=== PATIENT | female | born 1995 | race Caucasian/White ===

== ENCOUNTER 2016-08-25 20:17 | Emergency (ER) | payer BC ==
[2016-08-25 20:31] LABS: URINE APPEARANCE CLEAR; URINE BILIRUBIN NEGATIVE (NEGATIVE); URINE BLOOD NEGATIVE (NEGATIVE); URINE COLOR YELLOW; URINE GLUCOSE (UA) NEGATIVE (NEGATIVE); URINE KETONE NEGATIVE (NEGATIVE); URINE LEUKOCYTE ESTERASE NEGATIVE (NEGATIVE); URINE NITRITE NEGATIVE (NEGATIVE); URINE PROTEIN NEGATIVE (NEGATIVE); URINE UROBILINOGEN 0.2 E.U./dL (0.20 - 1.00)
[2016-08-25 20:34] LABS: HCG,QUALITATIVE URINE NEGATIVE (NEGATIVE)
--- NOTE | 2016-08-25 20:48 | Emergency Department Record ---
History of Present Illness - General Chief Complaint: Abdominal Pain Stated Complaint: ABD PAIN Time Seen by Provider: 08/25/16 20:47 Source: Patient Mode of Arrival: Ambulatory Limitations: No limitations - History of Present Illness Initial Comments: The patient is here due to a sharp stabbing RUQ AP that has been present for 2 weeks. It has been intermittent and worsening with eating and there has been mild nausea and vomiting at times. The patient did have an US performed here at [facility] 2 days ago but is not sure of the results. She states the pain has become much worse over the last 2 hours. MD Complaint: Abdominal pain Onset/Timin -: Week(s) Location: RUQ Severity: Severe Quality: Burning, Sharp Consistency: Constant - Related Data LMP (females 10-50): 3 weeks ago Patient : No Home Medications Medication Instructions Recorded Confirmed Last Taken Escitalopram Oxalate [Lexapro] 20 mg PO DAILY 08/25/16 08/25/16 Unknown Lurasidone HCl [Latuda] 60 mg PO DAILY 08/25/16 08/25/16 Unknown Trazodone HCl [Desyrel] 50 mg PO QHS 08/25/16 08/25/16 Unknown Previous Rx's Medication Instructions Recorded Sucralfate [Carafate] 1 gm PO QID #28 tablet 08/25/16 Allergies Allergy/AdvReac Type Severity Reaction Status Date / Time bupropion HCl Allergy ANAPHYLAXIS Verified 08/25/16 20:35 [From Wellbutrin] aripiprazole [From Abilify] AdvReac Change in Verified 08/25/16 20:35 Behavior metronidazole [From Flagyl] AdvReac Jaw Locking Verified 08/25/16 20:35 tramadol AdvReac Fainted Verified 08/25/16 20:35 Travel Screening - Travel/Exposure Within Last 30 Days Have you traveled within the last 30 days?: No Review of Systems Constitutional: Denies: Chills, Fever ENT: Denies: Congestion Respiratory: Denies: Cough, Dyspnea Cardiovascular: Denies: Arrhythmia, Chest pain Past Medical History - SOCIAL HISTORY Smoking Status: Never smoker Alcohol Use: Rare Drug Use: None - RESPIRATORY Hx Respiratory Disorders: No - CARDIOVASCULAR Hx Cardio Disorders: No - NEURO Hx Neuro Disorders: No - GI Hx GI Disorders: No - Hx Genitourinary Disorders: No - ENDOCRINE Hx Endocrine Disorders: No - MUSCULOSKELETAL Hx Musculoskeletal Disorders: No - PSYCH Hx Psych Problems: Yes Hx Anxiety: Yes Hx Depression: Yes - HEMATOLOGY/ONCOLOGY Hx Hematology/Oncology Disorders: No Family Medical History Any Significant Family History?: Yes Hx Cancer: Grandparents Hx Depression: Grandparents Hx Heart Disease: Grandparents Hx HTN: Grandparents Physical Exam - General General Appearance: Alert, Oriented x3, Cooperative, No acute distress - Head Head exam: Atraumatic, Normocephalic, Normal inspection - Eye Eye exam: Normal appearance, PERRL - ENT Throat exam: Normal inspection. negative: Tonsillar erythema, Tonsillar exudate - Neck Neck exam: Normal inspection, Full ROM. negative: Tenderness - Respiratory Respiratory exam: Normal lung sounds bilaterally. negative: Respiratory distress - Cardiovascular Cardiovascular Exam: Regular rate, Normal rhythm, Normal heart sounds - GI/Abdominal GI/Abdominal exam: Soft, Tenderness (There is mild to moderate RUQ tenderness.) . negative: Guarding, Rebound, Rigid - Extremities Extremities exam: Normal inspection, Full ROM, Normal capillary refill. negative: Tenderness - Back Back exam: Reports: Normal inspection - Neurological Neurological exam: Alert, Normal gait. negative: Abnormal gait, Motor sensory deficit Course Vital Signs 08/25/16 20:23 Temperature 97.7 F Pulse Rate [ 97 H Pulse Ox Probe] Respiratory 21 Rate Blood Pressure 120/73 [Right Arm] Pulse Ox 100 - Reevaluation(s) Reevaluation #1: The patient is doing much better at this time. Her pain has resolved with the small dose of Dilaudid. She denies any discomfort or tenderness at this time. 08/25/16 21:11 Reevaluation #2: The patient is doing much better at this time. Her pain is now down to her chronic pain level over the last 2 weeks. She is scheduled for a HIDA scan by her PCP also. 08/25/16 21:36 Reevaluation #3: The patient is doing much better at this time. Her abdominal pain now has resolved and she denies any significant discomfort. I did explain the need to have the HIDA performed which her PCP is ordering. We also will place a consult to Dr. Chase for this . 08/25/16 22:09 Medical Decision Making - Data Complexity MDM Data: Labs Ordered and/or Reviewed, X-Ray Ordered and/or Reviewed - Lab Data Result diagrams: 08/25/16 20:20 08/25/16 20:20 Lab Results 08/25/16 Range/Units 20:34 Urine Color Yellow Urine Appearance Clear Urine pH 7.0 (5.0-8.0) Ur Specific Josephine 1.010 (1.002-1.030) Urine Protein Negative (NEGATIVE) Urine Glucose (UA) Negative (NEGATIVE) Urine Ketones Negative (NEGATIVE) Urine Blood Negative (NEGATIVE) Urine Nitrite Negative (NEGATIVE) Urine Bilirubin Negative (NEGATIVE) Urine Urobilinogen 0.2 (0.20 - 1.00) E.U./dL Ur Leukocyte Esterase Negative (NEGATIVE) Urine HCG, Qual Negative (NEGATIVE) - Radiology Data Radiology results: Report reviewed (US 08/23. Normal per chemistry technical officer.) Disposition Disposition: Discharge Clinical Impression: Abdominal pain Qualifiers: Abdominal location: right upper quadrant Qualified Code(s): R10.11 - Right upper quadrant pain Disposition: Home, Self-Care Condition: (1) Good Instructions: Abdominal Pain (ED) Additional Instructions: Please continue your regular medicines. Please take the Carafate as directed. Please see Nena in Dr. Valdes office to get the Hida ordered. Return to the ER for any increased pain, fever, or vomiting. Prescriptions: Sucralfate [Carafate] 1 gm PO QID #28 tablet Referrals: [facility] Special[facility] [Provider Group] Forms: Patient Portal Access Time of Disposition: 22:12
[2016-08-25] MEDS ORDERED: 0.9 % SODIUM CHLORIDE 1,000 ML BAG IV ONE (20:50)
[2016-08-25] MEDS ORDERED: ONDANSETRON HCL IV 4 MG/2 ML VIAL IV ONE (20:50)
[2016-08-25] MEDS ORDERED: HYDROMORPHONE HCL 1 MG/ML CPJ IVP ONE (20:56)
[2016-08-25 21:11] LABS: BASO % 0.4 % (0-6); EOS % 2.4 % (0-6); GRAN % 48.4 % (47-80); HEMATOCRIT 37.1 % (35.0-47.0); HEMOGLOBIN 12.2 gm/dl (11.6-16.0); LYMPH % 40.3 % (16-45); MEAN CELL VOLUME 85.5 fl (81-97); MEAN CORPUSCULAR HEMOGLOBIN 28.1 pg (27-33); MEAN CORPUSCULAR HGB CONC 32.9 g/dl (32-36); MEAN PLATELET VOLUME 10.2 fl (7.4-10.4); MONO % 8.5 % (0-9); PLATELET COUNT 234 K/uL (130-400); RED BLOOD COUNT 4.34 M/uL (3.80-5.40); RED CELL DISTRIBUTION WIDTH 13.9 % (11.5-14.5); WHITE BLOOD COUNT W/O DIFF 7.7 K/uL (4.2-12.2)
[2016-08-25 21:22] LABS: ALBUMIN 4.3 gm/dL (3.5-5.0); ALKALINE PHOSPHATASE 71 U/L (38-126); ALT/SGPT 30 U/L (9-52); ANION GAP 13.9 (7-16); AST/SGOT 22 U/L (14-36); BILIRUBIN,TOTAL 0.19 mg/dL (0.2-1.3); BLOOD UREA NITROGEN 13 mg/dL (7-17); CARBON DIOXIDE 25.1 mmol/L (22-30); CREATININE 0.8 mg/dL (0.52-1.04); EST GLOMERULAR FILTRATION RATE > 60 ml/min; GLUCOSE,RANDOM 112 mg/dL (70-110); LIPASE 143 U/L (23-300); TOTAL PROTEIN 7.3 gm/dL (6.3-8.2)
[2016-08-25] MEDS ORDERED: SUCRALFATE 1 G/10 ML UD PO ONE (21:33)
[2016-08-25] MEDS ORDERED: DIPHENHYDRAMINE HCL IV 50 MG/ML VIAL IVP ONE (21:55)
[2016-08-25] MEDS ORDERED: KETOROLAC 30 MG/ML VIAL IVP ONE (21:56)
== END 2016-08-25 22:35 | disposition home or self-care (01) ==
LOC: ER 20:17
DX: R10.11 Right upper quadrant pain (principal); R11.2 Nausea with vomiting, unspecified
CPT/HCPCS: 99284 ×2; 96374; 96375; 83690; 85025; 80076; 80048; 81003; 81025; J1885; J2405; J1170; J1200; J7030

== ENCOUNTER 2016-12-17 10:19 | Emergency (ER) | payer BC ==
--- NOTE | 2016-12-17 10:58 | Emergency Department Record ---
History of Present Illness - General Chief complaint: Head Injury Stated complaint: HEAD INJURY Time Seen by Provider: 12/17/16 10:43 Source: Patient Mode of Arrival: Ambulatory Limitations: No limitations - History of Present Illness Initial comments: 21 yo female presents to ED with a CC of injury to the head that occurred 48 hours ago resulting from a fall at home. Patient denies LOC, but reports nausea , dizziness, and difficulty concentrating since the injury occurred. 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 As a result, the patient reports her PCP instructed her to come to the ED for imaging of the brain. MD Complaint: Head injury Onset/Timin -: Days(s) Mechanism of Injury: Other Location: Parietal, Temporal Loss of Consciousness: No Place: Home Severity scale (1-10): 4 Quality: Burning Consistency: Intermittent Associated Symptoms: Nausea, Vertigo, Other - Related Data Home Medications Medication Instructions Recorded Confirmed Last Taken Escitalopram Oxalate [Lexapro] 20 mg PO DAILY 08/25/16 12/17/16 12/17/16 Lurasidone HCl [Latuda] 60 mg PO DAILY 08/25/16 12/17/16 12/16/16 Trazodone HCl [Desyrel] 50 mg PO QHS 08/25/16 12/17/16 12/16/16 Loratadine [Claritin] 10 mg PO DAILY 12/17/16 12/17/16 12/17/16 Milnacipran HCl [Savella] 25 mg PO BID 12/17/16 12/17/16 12/17/16 Allergies/Adverse reactions: Allergies Allergy/AdvReac Type Severity Reaction Status Date / Time bupropion HCl Allergy ANAPHYLAXIS Verified 08/25/16 20:35 [From Wellbutrin] aripiprazole [From Abilify] AdvReac Change in Verified 08/25/16 20:35 Behavior metronidazole [From Flagyl] AdvReac Jaw Locking Verified 08/25/16 20:35 tramadol AdvReac Fainted Verified 08/25/16 20:35 Travel Screening - Travel/Exposure Within Last 30 Days Have you traveled within the last 30 days?: No - Travel/Exposure Within Last Year Have you traveled outside the [place] in the last year?: No - Additonal Travel Details Have you been exposed to anyone with a communicable illness?: No - Travel Symptoms Symptom Screening: None Review of Systems Constitutional: Denies: Chills, Fever, Malaise, Night sweats Eyes: Denies: Eye discharge, Eye pain ENT: Denies: Congestion, Ear pain, Epistaxis Respiratory: Denies: Cough, Dyspnea Cardiovascular: Denies: Chest pain, Dyspnea on exertion Endocrine: Denies: Fatigue, Heat or cold intolerance Gastrointestinal: Reports: Nausea. Denies: Abdominal pain, Vomiting Genitourinary: Denies: Abnormal menses, Incontinence, Retention Musculoskeletal: Denies: Arthralgia, Back pain, Gout Skin: Denies: Bruising, Change in color Neurological: Reports: Headache. Denies: Abnormal gait, Confusion, Seizure Psychiatric: Denies: Anxiety Hematological/Lymphatic: Denies: Anemia, Blood Clots Past Medical History - SOCIAL HISTORY Smoking Status: Never smoker Alcohol Use: Rare Drug Use: None - RESPIRATORY Hx Respiratory Disorders: No - CARDIOVASCULAR Hx Cardio Disorders: No - NEURO Hx Neuro Disorders: Yes Comment:: Arachnoid cyst - GI Hx GI Disorders: Yes Hx Irritable Bowel: Yes - Hx Genitourinary Disorders: No - ENDOCRINE Hx Endocrine Disorders: No - MUSCULOSKELETAL Hx Musculoskeletal Disorders: Yes Hx Fibromyalgia: Yes - PSYCH Hx Psych Problems: Yes Hx Anxiety: Yes Hx Depression: Yes - HEMATOLOGY/ONCOLOGY Hx Hematology/Oncology Disorders: No Family Medical History Any Significant Family History?: No Hx Cancer: Grandparents Hx Depression: Grandparents Hx Heart Disease: Grandparents Hx HTN: Grandparents Physical Exam - General General Appearance: Alert, Oriented x3, Cooperative, No acute distress, Other ( smiling, well appearing on examination) Limitations: No limitations - Head Head exam: Atraumatic, Normocephalic, Normal inspection Head exam detail: negative: Abrasion, Contusion, Suresh's sign, General tenderness, Hematoma, Laceration - Eye Eye exam: Normal appearance. negative: Conjunctival injection, Periorbital swelling, Periorbital tenderness, Scleral icterus - ENT Ear exam: negative: Auricular hematoma, Auricular trauma Nasal Exam: negative: Active bleeding, Discharge, Dried blood, Foreign body Mouth exam: negative: Drooling, Laceration, Muffled voice, Tongue elevation - Neck Neck exam: Normal inspection. negative: Meningismus, Tenderness - Respiratory Respiratory exam: Normal lung sounds bilaterally. negative: Rales, Respiratory distress, Rhonchi, Stridor - Cardiovascular Cardiovascular Exam: Regular rate, Normal rhythm, Normal heart sounds - GI/Abdominal GI/Abdominal exam: Soft. negative: Rebound, Rigid, Tenderness - Rectal Rectal exam: Deferred - exam: Deferred - Extremities Extremities exam: Normal inspection. negative: Calf tenderness, Pedal edema, Tenderness - Back Back exam: Denies: CVA tenderness (R), CVA tenderness (L) - Neurological Neurological exam: Alert, Normal gait, Oriented X3 - Psychiatric Psychiatric exam: Normal affect, Normal mood - Skin Skin exam: Normal color. negative: Abrasion Type of lesion: negative: abrasion Course Vital Signs 12/17/16 10:30 Temperature 97.7 F Pulse Rate [ 83 Pulse Ox Probe] Respiratory 18 Rate Blood Pressure 116/72 [Left Arm] Pulse Ox 98 - Reevaluation(s) Reevaluation #1: 12/17/16 11:51 CT Brain: Arachnoid cyst, nothing acute. Patient was updated on her imaging study results, patient appears stable for discharge at this time with follow-up with her PCP in 3-5 days as directed. Disposition Disposition: Discharge Clinical Impression: Head injury Qualifiers: Encounter type: initial encounter Qualified Code(s): S09.90XA - Unspecified injury of head, initial encounter Disposition: Home, Self-Care Condition: (2) Stable Instructions: Minor Head Injury (ED) Additional Instructions: Return to ED if your symptoms worsen or if you have any concerns. Follow-up with your family doctor in 3-5 days as directed. Forms: Patient Portal Access Time of Disposition: 11:53
--- NOTE | 2016-12-20 15:03 | CT SCAN REPORT ---
EXAM: CT OF THE BRAIN WITHOUT CONTRAST HISTORY: CONCUSSION. CYST ON BRAIN. TECHNIQUE: Sequential axial images were obtained from the foramen magnum to the vertex without contrast administration. FINDINGS: The brain volume is normal. There is an arachnoid cyst in the left anterior middle cranial fossa. No large territorial hemorrhage, infarct, mass effect, or midline shift. No extraaxial fluid collection. The orbits, paranasal sinuses, and mastoid air cells are normal. IMPRESSION: 1. NO ACUTE INTRACRANIAL ABNORMALITY IS APPRECIATED. 2. BENIGN APPEARING ARACHNOID CYSTS IN THE ANTERIOR LEFT MIDDLE CRANIAL FOSSA. JOB NUMBER: [id number] MTDD
== END 2016-12-17 12:02 | disposition home or self-care (01) ==
LOC: ER 10:19
DX: S09.90XA Unspecified injury of head, initial encounter (principal); R42 Dizziness and giddiness; R11.0 Nausea; W19.XXXA Unspecified fall, initial encounter; Y92.009 Unspecified place in unspecified non-institutional (private) residence as the place of occurrence of the external cause; G93.0 Cerebral cysts
CPT/HCPCS: 70450; 99283

== ENCOUNTER 2018-01-23 13:27 | Emergency (ER) | payer BC ==
--- NOTE | 2018-01-23 14:01 | Emergency Department Record ---
History of Present Illness - General Chief Complaint: Abdominal Pain Stated Complaint: ABD CRAMPS Time Seen by Provider: 01/23/18 13:35 Source: Patient Mode of Arrival: Ambulatory Limitations: No limitations - History of Present Illness Initial Comments: The patient is here due to worsening of her chronic AP. She has a long hx of severe pain with her menses and is presently being treated for Endometriosis by her PHARMACY DISTRICT MANAGER specialist in [place]. Now she started her menses today and the chronic pain is more severe. She denies any vaginal discharge, dysuria, upper AP , nausea, vomiting, back pain or fever. The patient has had her GB removed in the past. MD Complaint: Abdominal pain Onset/Timin -: Hour(s) Location: Suprapubic Radiation: Suprapubic Migration to: Suprapubic Severity scale (1-10): 9 Quality: Aching, Cramping Improves With: Nothing Worsens With: Nothing Associated Symptoms: Diarrhea - Related Data LMP Date: 01/23/18 Previous Rx's Medication Instructions Recorded Naproxen [Naprosyn] 500 mg PO BID #14 tablet. 01/23/18 Allergies Allergy/AdvReac Type Severity Reaction Status Date / Time bupropion HCl Allergy ANAPHYLAXIS Verified 01/23/18 13:38 [From Wellbutrin] aripiprazole [From Abilify] AdvReac Change in Verified 01/23/18 13:38 Behavior metronidazole [From Flagyl] AdvReac Jaw Locking Verified 01/23/18 13:38 tramadol AdvReac Fainted Verified 01/23/18 13:38 Travel Screening - Travel/Exposure Within Last 30 Days Have you traveled within the last 30 days?: Yes Location Detail:: [place] - Travel/Exposure Within Last Year Have you traveled outside the [place] in the last year?: No - Additonal Travel Details Have you been exposed to anyone with a communicable illness?: No - Travel Symptoms Symptom Screening: None Review of Systems Constitutional: Denies: Chills, Fever Eyes: Denies: Eye discharge ENT: Denies: Congestion, Other Respiratory: Denies: Cough, Dyspnea Past Medical History - SOCIAL HISTORY Smoking Status: Never smoker Alcohol Use: Occasional Drug Use: None - RESPIRATORY Hx Respiratory Disorders: No - CARDIOVASCULAR Hx Cardio Disorders: No - NEURO Hx Neuro Disorders: Yes Comment:: Arachnoid cyst - GI Hx GI Disorders: Yes Hx Irritable Bowel: Yes - Hx Genitourinary Disorders: No - ENDOCRINE Hx Endocrine Disorders: No - MUSCULOSKELETAL Hx Musculoskeletal Disorders: Yes Hx Fibromyalgia: Yes - PSYCH Hx Psych Problems: Yes Hx Anxiety: Yes Hx Depression: Yes - HEMATOLOGY/ONCOLOGY Hx Hematology/Oncology Disorders: No Family Medical History Any Significant Family History?: No Hx Cancer: Grandparents Hx Depression: Grandparents Hx Heart Disease: Grandparents Hx HTN: Grandparents Physical Exam - General General Appearance: Alert, Oriented x3, Cooperative, No acute distress (The patient appears very comfortably and cooperative and in no distress.) - Head Head exam: Atraumatic, Normocephalic, Normal inspection - Eye Eye exam: Normal appearance, PERRL - Neck Neck exam: Normal inspection, Full ROM. negative: Tenderness - Respiratory Respiratory exam: Normal lung sounds bilaterally. negative: Respiratory distress - Cardiovascular Cardiovascular Exam: Regular rate, Normal rhythm, Normal heart sounds - GI/Abdominal GI/Abdominal exam: Soft, Normal bowel sounds. negative: Guarding, Organomegaly , Rebound, Rigid, Tenderness (There is no abdominal tenderness on exam.) Course Vital Signs 01/23/18 13:30 Temperature 97.9 F Pulse Rate 76 Respiratory 18 Rate Blood Pressure 117/88 Pulse Ox 100 - Reevaluation(s) Reevaluation #1: The patient is doing well at this time. She is back from and feels well with no pain or discomfort. 01/23/18 15:50 Reevaluation #2: The patient is doing very well at this time. She denies any pain or discomfort. I did explain to her the workup is neg. She is to see her PHARMACY DISTRICT MANAGER specialist next week when she returns to [place] if needed. 01/23/18 16:44 Medical Decision Making - Data Complexity MDM Data: Labs Ordered and/or Reviewed, X-Ray Ordered and/or Reviewed - Lab Data Result diagrams: 01/23/18 14:03 01/23/18 14:03 - Radiology Data Radiology results: Report reviewed (Pelvic US: Neg per Rad.) Disposition Disposition: Discharge Clinical Impression: Chronic female pelvic pain Disposition: Home, Self-Care Condition: (2) Stable Instructions: Abdominal Pain (ED) Additional Instructions: Please take the Naprosyn for pain and see your PHARMACY DISTRICT MANAGER specialist next week if needed. Return to the ER for any worsening symptoms. Prescriptions: Naproxen [Naprosyn] 500 mg PO BID #14 tablet.dr Forms: Patient Portal Access Time of Disposition: 16:47 Quality - Quality Measures Quality Measures: N/A - Blood Pressure Screening View Details: Yes Does Patient Have Any of the Following: No Blood Pressure Classification: Normal BP Reading Systolic Measurement: 108 Diastolic Measurement: 76 Screening for High Blood Pressure: < Normal BP, F/U Not Required > [[id number]]
[2018-01-23 14:09] LABS: URINE APPEARANCE CLEAR; URINE BILIRUBIN NEGATIVE (NEGATIVE); URINE BLOOD LARGE (NEGATIVE); URINE COLOR YELLOW; URINE GLUCOSE (UA) NEGATIVE (NEGATIVE); URINE KETONE NEGATIVE (NEGATIVE); URINE LEUKOCYTE ESTERASE NEGATIVE (NEGATIVE); URINE NITRITE NEGATIVE (NEGATIVE); URINE PROTEIN NEGATIVE (NEGATIVE); URINE UROBILINOGEN 0.2 E.U./dL (0.20 - 1.00)
[2018-01-23 14:10] LABS: BASO % 0.2 % (0-6); EOS % 2.4 % (0-6); GRAN % 68.5 % (47-80); HEMATOCRIT 40.5 % (35.0-47.0); LYMPH % 20.8 % (16-45); MEAN CELL VOLUME 82.8 fl (81-97); MEAN CORPUSCULAR HEMOGLOBIN 26.6 pg (27-33); MEAN CORPUSCULAR HGB CONC 32.1 g/dl (32-36); MEAN PLATELET VOLUME 9.3 fl (7.4-10.4); MONO % 8.1 % (0-9); PLATELET COUNT 285 K/uL (130-400); RED BLOOD COUNT 4.89 M/uL (3.80-5.40); RED CELL DISTRIBUTION WIDTH 14.5 % (11.5-14.5); WHITE BLOOD COUNT W/O DIFF 10.2 K/uL (4.2-12.2)
[2018-01-23 14:17] LABS: BLOOD UREA NITROGEN 10 mg/dL (6-20); CREATININE 0.8 mg/dL (0.5-0.9); EST GLOMERULAR FILTRATION RATE > 60 mL/min
[2018-01-23 14:20] LABS: GLUCOSE,RANDOM 98 mg/dL (74-109); URINE BACTERIA FEW; URINE RBC 16 - 25 (NONE SEEN); URINE SQUAMOUS EPITHELIAL CELL 0 - 2 /hpf; URINE WBC 0 - 2 (0-2/hpf)
[2018-01-23 14:25] LABS: HCG,QUALITATIVE URINE NEGATIVE (NEGATIVE)
[2018-01-23] MEDS ORDERED: KETOROLAC 30 MG/ML VIAL IM ONE (14:26)
--- NOTE | 2018-01-26 09:28 | ULTRASOUND REPORT ---
EXAM: ULTRASOUND OF THE PELVIS WITH TRANSVAGINAL IMAGING HISTORY: BILATERAL PELVIC PAIN, LEFT GREATER THAN RIGHT. TECHNIQUE: Transabdominal ultrasound examination of the pelvis was performed. Transvaginal scanning was also performed for further evaluation of the uterus and adnexa. Comparison: Ultrasound of the pelvis dated 12/23/13. FINDINGS: TRANSABDOMINAL PELVIC ULTRASOUND: The uterus is normal in position and smoothly marginated. It measures 6.9 x 2.8 x 4.2 cm. No myometrial mass is seen. The endometrium is not optimally visualized though its thickness is estimated at 3 mm which is within the limits of normal. The right ovary is visualized and normal in appearance measuring 1.6 x 3.3 x 1.7 cm. The left ovary is also visualized and normal in appearance measuring 1.4 x 3.1 x 1.3 cm. Blood flow is demonstrated in each ovary with color Doppler and Duplex Doppler evaluation. Spectral analysis demonstrates venous and arterial waveforms in each ovary. No adnexal mass nor free pelvic fluid. TRANSVAGINAL PELVIC ULTRASOUND: The uterus appears somewhat retroverted. It is otherwise normal in size and without mass. The endometrial thickness of 3 mm is within the limits of normal. Each ovary is visualized and normal in appearance with the left ovary measuring 1.9 x 3.0 x 1.6 cm and the right ovary measuring 2.7 x 2.0 x 1.9 cm. Small follicles are noted in each ovary. Blood flow is demonstrated in each ovary with color Doppler and Duplex Doppler evaluation. Spectral analysis demonstrates venous and arterial waveforms in each ovary. No adnexal mass nor free pelvic fluid. IMPRESSION: THE UTERUS APPEARS MILDLY RETROVERTED ON TRANSVAGINAL IMAGING. THE EXAMINATION IS OTHERWISE UNREMARKABLE. JOB NUMBER: [id number] [facility]
== END 2018-01-23 16:53 | disposition home or self-care (01) ==
LOC: ER 13:27
DX: G89.29 Other chronic pain (principal); R10.2 Pelvic and perineal pain; R19.7 Diarrhea, unspecified
CPT/HCPCS: 76830; 76856; 80048; 81001; 81025; 85025; 96372; 99283; 99284; J1885